=== PATIENT | female | born 1995 | race African-American/Black ===

== ENCOUNTER 2020-05-31 10:28 | Emergency (ER) | payer SELFPAY ==
[~2020-05-31] VITALS: Ht 149.9 cm; Wt 49.9 kg
--- NOTE | 2020-05-31 10:28 | NUR ---
Patient BIB [facility] for pre-booking medical screening exam, transferred to chair Nata. RN evaluating patient at bedside.
[2020-05-31 10:30] VITALS: BP 127/83
[2020-05-31] MEDS ORDERED: LIDOCAINE MPF 1% 10 MG/ML VIAL INJ ONE (11:20)
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
--- NOTE | 2020-05-31 11:58 | NUR ---
Dr. Gonzalez is repairing the laceration.
--- NOTE | 2020-05-31 12:24 | NUR ---
Patient discharged with v/s stable. Written and verbal after care instructions given and explained to parent/guardian. Parent/Guardian verbalized understanding. Ambulatorysteady gait. All questions addressed prior to discharge. Advised to follow up with PMD.
[2020-05-31 12:25] VITALS: BP 127/83
== END 2020-05-31 12:24 | disposition home or self-care (01) ==
LOC: MED 10:28
DX: S01.81XA Laceration without foreign body of other part of head, initial encounter (principal); F17.200 Nicotine dependence, unspecified, uncomplicated; J45.909 Unspecified asthma, uncomplicated; W22.01XA Walked into wall, initial encounter; Y93.89 Activity, other specified; Y92.89 Other specified places as the place of occurrence of the external cause; Y99.8 Other external cause status
CPT/HCPCS: 12011; 81025; 90471; 90715; 99283; J2001